=== PATIENT | female | born 1950 | race African-American/Black ===

== ENCOUNTER → 2017-04-15 | Outpatient (CLI) | payer MEDICARE, MEDICAID ==
[~2017-04-15] MED LIST: CARI350T PO; GABA-531 PO; HYDR-3282 PO; HYDR-3511 PO; LISI40TA4 PO; OXYC80TA40 PO; [UNRECOGNIZED DRUG - OTHER] PO; [UNRECOGNIZED DRUG - OTHER] PO
== END | disposition home or self-care (01) ==
LOC: US 06:16
PROVIDERS: ATTEND Internal Medicine Gastroenterology
DX: R10.13 Epigastric pain (principal); Z90.49 Acquired absence of other specified parts of digestive tract
CPT/HCPCS: 76700

== ENCOUNTER → 2017-10-17 | Outpatient (CLI) | payer MEDICARE, MEDICAID | END | disposition home or self-care (01) | LOC: MRI 09:40 | PROVIDERS: ATTEND Neurological Surgery | DX: M48.061 Spinal stenosis, lumbar region without neurogenic claudication (principal); M47.897 Other spondylosis, lumbosacral region; M47.896 Other spondylosis, lumbar region; Z98.1 Arthrodesis status | CPT/HCPCS: 72100; 72148 ==

== ENCOUNTER → 2018-01-02 | Outpatient (CLI) | payer MEDICARE, MEDICAID | END | disposition home or self-care (01) | LOC: US 07:27 | PROVIDERS: ATTEND Internal Medicine Gastroenterology | DX: R10.9 Unspecified abdominal pain (principal); Z90.49 Acquired absence of other specified parts of digestive tract; K21.9 Gastro-esophageal reflux disease without esophagitis | CPT/HCPCS: 76700 ==

== ENCOUNTER → 2018-05-30 | Outpatient (CLI) | payer MEDICARE, MEDICAID ==
[~2018-05-30] MED LIST changes: -CARI350T PO; +S350 PO
== END | disposition home or self-care (01) ==
LOC: RAD 11:20
PROVIDERS: ATTEND Family Medicine
DX: M17.12 Unilateral primary osteoarthritis, left knee (principal)
CPT/HCPCS: 73560

== ENCOUNTER → 2018-08-18 | Outpatient (CLI) | payer MEDICARE, MEDICAID | END | disposition home or self-care (01) | LOC: RAD 11:25 | PROVIDERS: ATTEND Neurological Surgery | DX: M48.07 Spinal stenosis, lumbosacral region (principal) | CPT/HCPCS: 72114 ==

== ENCOUNTER → 2018-11-20 | Outpatient (CLI) | payer MEDICARE, MEDICAID | END | disposition home or self-care (01) | LOC: US 14:49 | PROVIDERS: ATTEND Internal Medicine Gastroenterology | DX: K74.60 Unspecified cirrhosis of liver (principal); Z90.49 Acquired absence of other specified parts of digestive tract | CPT/HCPCS: 76700 ==

== ENCOUNTER → 2019-03-13 | Outpatient (CLI) | payer MEDICARE, MEDICAID ==
[~2019-03-13] MED LIST changes: -HYDR-3511 PO; +HYDR-3512 PO
== END | disposition home or self-care (01) ==
LOC: RAD 08:21
PROVIDERS: ATTEND Neurological Surgery
DX: M48.07 Spinal stenosis, lumbosacral region (principal); M51.36 Other intervertebral disc degeneration, lumbar region; M25.551 Pain in right hip; M25.552 Pain in left hip
CPT/HCPCS: 72148; 73521

== ENCOUNTER → 2019-05-21 | Outpatient (CLI) | payer MEDICARE, MEDICAID ==
[~2019-05-21] MED LIST changes: +AMLO5TAB88 PO; +ASPI-1393 PO; +CARI-166 PO; +CICL6.6S5 TP; +HYDR25TA PO; +MIRT15TA6 PO; +OMEP40CA34 PO; -S350 PO; +TRAM50TA3 PO
== END | disposition home or self-care (01) ==
LOC: US 08:13
PROVIDERS: ATTEND Internal Medicine Gastroenterology
DX: K74.60 Unspecified cirrhosis of liver (principal); K21.9 Gastro-esophageal reflux disease without esophagitis; R18.8 Other ascites; Z90.49 Acquired absence of other specified parts of digestive tract
CPT/HCPCS: 76700

== ENCOUNTER 2019-06-02 09:39 | Day surgery (SDC) | payer MEDICARE, MEDICAID ==
[~2019-06-02] VITALS: Ht 162.6 cm; Wt 64.9 kg
[~2019-06-02 09:39] MED LIST changes: -AMLO5TAB88 PO; -ASPI-1393 PO; -CICL6.6S5 TP; -HYDR25TA PO; -MIRT15TA6 PO; -OMEP40CA34 PO; -TRAM50TA3 PO
[2019-06-02] MEDS ORDERED: LACTATED RINGERS 1,000 ML IV SCH (11:15)
[2019-06-02] MEDS ORDERED: ONDANSETRON HCL 4MG/2ML INJ IV PRN (13:30)
[2019-06-02] MEDS ORDERED: HYDROMORPHONE HCL/PF 2MG/ML CPJ IV PRN (13:30)
[2019-06-02] MEDS ORDERED: LABETALOL 5MG/ML SYR 20 MG/4 ML SYRINGE IV PRN (13:30)
[2019-06-02] MEDS ORDERED: MEPERIDINE HCL/PF 25MG/ML CPJ IV PRN (13:30)
[2019-06-02] MEDS ORDERED: PROPOFOL 200MG/20ML VIAL IV ONE ×2 (13:30→13:32)
[2019-06-02] MEDS ORDERED: MIRT15TA6 PO (13:40)
[2019-06-02] MEDS ORDERED: AMLO5TAB88 PO (13:40)
[2019-06-02] MEDS ORDERED: TRAM50TA3 PO (13:40)
[2019-06-02] MEDS ORDERED: CICL6.6S5 TP (13:40)
[2019-06-02] MEDS ORDERED: ASPI-1393 PO (13:40)
[2019-06-02] MEDS ORDERED: OMEP40CA34 PO (13:40)
[2019-06-02] MEDS ORDERED: HYDR25TA PO (13:40)
[2019-06-02] MEDS ORDERED: EPHEDRINE SULFATE 50MG/ML VIAL ONE (14:49)
[2019-06-02] MEDS ORDERED: SODIUM CHLORIDE 0.9% 10ML VIAL ONE (14:49)
== END 2019-06-02 15:10 | disposition home or self-care (01) ==
LOC: OR 09:39
PROVIDERS: ATTEND Internal Medicine Gastroenterology
DX: Z12.11 Encounter for screening for malignant neoplasm of colon (principal); G43.909 Migraine, unspecified, not intractable, without status migrainosus; K21.9 Gastro-esophageal reflux disease without esophagitis; I10 Essential (primary) hypertension; K74.60 Unspecified cirrhosis of liver; Z88.5 Allergy status to narcotic agent; Z79.899 Other long term (current) drug therapy; Z98.890 Other specified postprocedural states; Z79.82 Long term (current) use of aspirin
CPT/HCPCS: G0121; J2704; J3490

== ENCOUNTER → 2020-09-21 | Outpatient (CLI) | payer MEDICARE, MEDICAID ==
[~2020-09-21] MED LIST changes: +AMLO5TAB88 PO; +ASPI-1497 PO; -CARI-166 PO; +CICL6.6S5 TP; -GABA-531 PO; -HYDR-3282 PO; -HYDR-3512 PO; +HYDR25TA PO; -LISI40TA4 PO; +MIRT15TA6 PO; +OMEP40CA12 PO; -OXYC80TA40 PO; +TRAM50TA3 PO; -[UNRECOGNIZED DRUG - OTHER] PO; -[UNRECOGNIZED DRUG - OTHER] PO
== END | disposition home or self-care (01) ==
LOC: MRI 09:58
PROVIDERS: ATTEND Neurological Surgery
DX: M47.817 Spondylosis without myelopathy or radiculopathy, lumbosacral region (principal); M43.16 Spondylolisthesis, lumbar region; M51.36 Other intervertebral disc degeneration, lumbar region; M48.061 Spinal stenosis, lumbar region without neurogenic claudication
CPT/HCPCS: 72114; 72148

== ENCOUNTER → 2020-10-05 | Outpatient (CLI) | payer MEDICARE, MEDICAID | END | disposition home or self-care (01) | LOC: MRI 09:38 | PROVIDERS: ATTEND Neurological Surgery | DX: M47.814 Spondylosis without myelopathy or radiculopathy, thoracic region (principal); M48.04 Spinal stenosis, thoracic region; M51.24 Other intervertebral disc displacement, thoracic region; M47.812 Spondylosis without myelopathy or radiculopathy, cervical region; M48.02 Spinal stenosis, cervical region | CPT/HCPCS: 72141; 72146 ==

== ENCOUNTER → 2021-04-11 | Outpatient (CLI) | payer MEDICARE, MEDICAID | END | disposition home or self-care (01) | LOC: CARD 12:16 | PROVIDERS: ATTEND Family Medicine | DX: Z01.810 Encounter for preprocedural cardiovascular examination (principal); J44.9 Chronic obstructive pulmonary disease, unspecified; I25.2 Old myocardial infarction; M43.27 Fusion of spine, lumbosacral region | CPT/HCPCS: 71046; 93005 ==

== ENCOUNTER 2021-07-01 06:56 | Inpatient (IN) | payer MEDICARE, MEDICAID ==
[~2021-07-01] VITALS: Ht 162.6 cm; Wt 73.5 kg
[~2021-07-01 06:56] MED LIST changes: +MIRT-89 PO; -MIRT15TA6 PO; -OMEP40CA12 PO; +OMEP40CA20 PO
[2021-07-01] MEDS ORDERED: TRAMADOL 50MG TABLET PO ONE ×2 (09:30→11:45)
[2021-07-01 09:31] LABS: BASOPHILS % 0.9 % (0.0-2.0); EOSINOPHILS % 1.3 % (0.0-5.0); HEMATOCRIT. 40.1 % (36.0-48.0); HEMOGLOBIN. 13.5 g/dL (12.0-16.0); LYMPHOCYTES % 34.3 % (20.0-50.0); MEAN CORPUSCULAR HEMOGLOBIN 30.5 pg (28.0-32.0); MEAN CORPUSCULAR VOLUME 90.7 fL (81.0-99.0); MEAN PLATELET VOLUME 8.3 fl (7.4-10.4); MONOCYTES % 9.9 % (2.0-8.0); NEUTROPHILS % 53.6 % (40.0-76.0); PLATELET 185 x1000/uL (130-400); RED BLOOD CELL COUNT 4.42 mill/uL (4.2-5.4); RED CELL DISTRIBUTION WIDTH 14.8 % (11.6-14.6)
[2021-07-01 09:40] LABS: CHLORIDE 111 mEq/L (98-107)
[2021-07-01] MEDS ORDERED: LIDOCAINE 5% PATCH TOP SCH (11:30)
[2021-07-01] MEDS ORDERED: CLONIDINE 0.1MG TABLET PO PRN (12:30)
[2021-07-01] MEDS ORDERED: ONDANSETRON HCL 4MG/2ML INJ IV PRN (12:30)
[2021-07-01] MEDS ORDERED: DOCUSATE SODIUM 100MG CAPSULE PO PRN (12:30)
[2021-07-01] MEDS ORDERED: ACETAMINOPHEN 325MG TABLET PO PRN (12:30)
[2021-07-01] MEDS ORDERED: FENTANYL CITRATE/PF 50MCG/ML 2ML VIAL IV PRN (12:30)
[2021-07-01] MEDS ORDERED: MELOXICAM 7.5MG TABLET PO SCH (13:45)
[2021-07-01] MEDS ORDERED: TIZANIDINE HCL 2MG TABLET PO ONE (13:45)
[2021-07-01] MEDS: SODIUM CHLORIDE 0.45% 1,000 ML IV SCH ×2 (20:00→21:26)
[2021-07-01 20:20] VITALS: BP 133/79
[2021-07-01 20:30] VITALS: BP 121/62
[2021-07-01] MEDS ORDERED: NALOXONE HCL 0.4MG/ML VIAL IV PRN (20:45)
[2021-07-01] MEDS: TRAMADOL HCL/ACETAMINOPHEN 37.5/325MG TABLET PO PRN (23:04)
[2021-07-02] VITALS: BP 129/72
[2021-07-02] MEDS ORDERED: TIZANIDINE HCL 2MG TABLET PO PRN (01:00)
[2021-07-02 04:00] VITALS: BP 126/73
[2021-07-02] MEDS: GABAPENTIN 300MG CAPSULE PO SCH ×3 (05:27→21:45)
[2021-07-02 08:08] VITALS: BP 122/56
[2021-07-02] MEDS: MELOXICAM 7.5MG TABLET PO SCH (08:43)
[2021-07-02] MEDS ORDERED: AMLODIPINE 5MG TABLET PO SCH (09:00)
[2021-07-02 10:42] LABS: HEMATOCRIT. 34.7 % (36.0-48.0); HEMOGLOBIN. 11.7 g/dL (12.0-16.0); MEAN CORPUSCULAR HEMOGLOBIN 30.2 pg (28.0-32.0); MEAN CORPUSCULAR VOLUME 89.4 fL (81.0-99.0); MEAN PLATELET VOLUME 8.9 fl (7.4-10.4); PLATELET 164 x1000/uL (130-400); RED BLOOD CELL COUNT 3.88 mill/uL (4.2-5.4); RED CELL DISTRIBUTION WIDTH 14.9 % (11.6-14.6)
[2021-07-02 10:45] LABS: CHLORIDE 108 mEq/L (98-107)
[2021-07-02 10:53] LABS: LDL CHOLESTEROL 90 mg/dL (5-100)
[2021-07-02 10:55] LABS: HDL CHOLESTEROL 49 mg/dL (40-59)
[2021-07-02] MEDS: CARISOPRODOL 350 MG TABLET PO SCH ×3 (11:46→22:05)
[2021-07-02 11:53] VITALS: BP 118/61
[2021-07-02 12:15] LABS: PLATELET ESTIMATE NORMAL
[2021-07-02 16:15] VITALS: BP 124/60
[2021-07-02 20:00] VITALS: BP 123/64
[2021-07-02] MEDS: MIRTAZAPINE 15MG TABLET PO SCH (21:45)
[2021-07-02] MEDS: LIDOCAINE 5% PATCH TOP SCH (23:53)
[2021-07-03] VITALS: BP 120/58
[2021-07-03 04:00] VITALS: BP 116/68
[2021-07-03] MEDS: GABAPENTIN 300MG CAPSULE PO SCH ×3 (05:59→22:03)
[2021-07-03] MEDS: CARISOPRODOL 350 MG TABLET PO SCH ×3 (06:00→22:03)
[2021-07-03 08:00] VITALS: BP 104/50
[2021-07-03 09:29] LABS: HEMATOCRIT. 34.8 % (36.0-48.0); HEMOGLOBIN. 11.8 g/dL (12.0-16.0); MEAN CORPUSCULAR HEMOGLOBIN 30.3 pg (28.0-32.0); MEAN CORPUSCULAR VOLUME 89.4 fL (81.0-99.0); MEAN PLATELET VOLUME 8.9 fl (7.4-10.4); PLATELET 174 x1000/uL (130-400); RED BLOOD CELL COUNT 3.89 mill/uL (4.2-5.4); RED CELL DISTRIBUTION WIDTH 14.8 % (11.6-14.6)
[2021-07-03] MEDS: MELOXICAM 7.5MG TABLET PO SCH (09:35)
[2021-07-03] MEDS: TRAMADOL HCL/ACETAMINOPHEN 37.5/325MG TABLET PO PRN (09:36)
[2021-07-03 09:52] LABS: CHLORIDE 110 mEq/L (98-107)
[2021-07-03 12:00] VITALS: BP 114/68
[2021-07-03 13:55] LABS: PLATELET ESTIMATE NORMAL
[2021-07-03 16:00] VITALS: BP 120/67
[2021-07-03] MEDS: LACTULOSE 20G/30ML UDC PO SCH ×2 (18:44→20:38)
[2021-07-03] MEDS: DOCUSATE SODIUM 100MG CAPSULE PO SCH (18:44)
[2021-07-03] MEDS: TRAMADOL 50MG TABLET PO PRN (18:47)
[2021-07-03 20:00] VITALS: BP 145/67
[2021-07-03] MEDS: POLYETHYLENE GLYCOL 3350 (17GM) 1 DOSE PACK PO SCH (20:38)
[2021-07-03] MEDS: MIRTAZAPINE 15MG TABLET PO SCH (20:39)
[2021-07-03] MEDS: LIDOCAINE 5% PATCH TOP SCH (22:05)
[2021-07-04] VITALS (7 sets, daily range): BP systolic 106–133; BP diastolic 60–71
[2021-07-04] MEDS: GABAPENTIN 300MG CAPSULE PO SCH ×3 (05:27→21:59)
[2021-07-04] MEDS: CARISOPRODOL 350 MG TABLET PO SCH ×3 (05:27→21:59)
[2021-07-04] MEDS: TRAMADOL 50MG TABLET PO PRN ×3 (05:42→22:12)
[2021-07-04] MEDS: LACTULOSE 20G/30ML UDC PO SCH (09:03)
[2021-07-04] MEDS: DOCUSATE SODIUM 100MG CAPSULE PO SCH ×2 (09:03→17:00)
[2021-07-04] MEDS: MELOXICAM 7.5MG TABLET PO SCH (09:03)
[2021-07-04] MEDS: POLYETHYLENE GLYCOL 3350 (17GM) 1 DOSE PACK PO SCH (21:00)
[2021-07-04] MEDS: MIRTAZAPINE 15MG TABLET PO SCH (21:59)
[2021-07-04] MEDS: LIDOCAINE 5% PATCH TOP SCH ×2 (22:00→22:13)
[2021-07-05] VITALS (8 sets, daily range): BP systolic 118–136; BP diastolic 56–82
[2021-07-05] MEDS: CARISOPRODOL 350 MG TABLET PO SCH ×3 (07:11→19:02)
[2021-07-05] MEDS: GABAPENTIN 300MG CAPSULE PO SCH ×3 (07:11→22:27)
[2021-07-05] MEDS: MELOXICAM 7.5MG TABLET PO SCH (10:33)
[2021-07-05] MEDS: DOCUSATE SODIUM 100MG CAPSULE PO SCH ×2 (10:33→17:00)
[2021-07-05] MEDS ORDERED: AMLODIPINE 5MG TABLET PO SCH (12:08)
[2021-07-05] MEDS: TRAMADOL 50MG TABLET PO PRN ×2 (14:40→22:31)
[2021-07-05] MEDS: POLYETHYLENE GLYCOL 3350 (17GM) 1 DOSE PACK PO SCH (21:00)
[2021-07-05] MEDS: MIRTAZAPINE 15MG TABLET PO SCH (21:00)
[2021-07-05] MEDS ORDERED: LIDOCAINE 5% PATCH TOP SCH (22:30)
== END 2021-07-05 22:55 | DRG 551 ==
LOC: ER 07:11 → 6EST 12:23 → ENRESERV 19:32 → 6EST 20:51
PROVIDERS: ADMIT Internal Medicine Nephrology; ATTEND Internal Medicine Nephrology
DX: M54.50 Low back pain, unspecified (principal); G82.50 Quadriplegia, unspecified; R26.89 Other abnormalities of gait and mobility; D72.819 Decreased white blood cell count, unspecified; I10 Essential (primary) hypertension; D64.9 Anemia, unspecified; R20.0 Anesthesia of skin; R53.81 Other malaise; K74.60 Unspecified cirrhosis of liver; M48.02 Spinal stenosis, cervical region; G89.4 Chronic pain syndrome; Y92.410 Unspecified street and highway as the place of occurrence of the external cause; Z82.49 Family history of ischemic heart disease and other diseases of the circulatory system; Z83.3 Family history of diabetes mellitus; Z85.05 Personal history of malignant neoplasm of liver; Z91.81 History of falling; Z98.1 Arthrodesis status; Z79.899 Other long term (current) drug therapy; V43.52XA Car driver injured in collision with other type car in traffic accident, initial encounter; Y93.89 Activity, other specified; Y99.8 Other external cause status; Z88.6 Allergy status to analgesic agent; Z79.82 Long term (current) use of aspirin; Z90.49 Acquired absence of other specified parts of digestive tract
CPT/HCPCS: 36415; 71045; 72131; 72141; 72146; 72148; 80048; 80053; 80061; 84484; 85025; 92523; 93005; 93970; 97116; 97162; 97166; 97530; 99285; A6261; J3010

== ENCOUNTER 2021-07-05 22:58 | Inpatient (IN) | payer MEDICARE, MEDICAID ==
[~2021-07-05] VITALS: Ht 162.6 cm; Wt 73.5 kg
[2021-07-05 22:58] VITALS: BP 138/61
[2021-07-06] MEDS ORDERED: ACETAMINOPHEN 325MG TABLET PO PRN (00:45)
[2021-07-06] MEDS ORDERED: DOCUSATE SODIUM 250MG CAPSULE PO PRN (00:45)
[2021-07-06] MEDS ORDERED: ONDANSETRON HCL 4MG/2ML INJ IV PRN (00:45)
[2021-07-06] MEDS ORDERED: CLONIDINE 0.1MG TABLET PO PRN (00:45)
[2021-07-06] MEDS ORDERED: NALOXONE HCL 0.4 MG/ML 1ML VIAL IV PRN (00:45)
[2021-07-06] MEDS ORDERED: DOCUSATE SODIUM 100MG CAPSULE PO PRN (01:02)
[2021-07-06] MEDS: CARISOPRODOL 350 MG TABLET PO SCH ×4 (01:34→17:52)
[2021-07-06] MEDS: GABAPENTIN 300MG CAPSULE PO SCH ×3 (05:37→21:37)
[2021-07-06 07:31] LABS: CHLORIDE 108 mEq/L (98-107)
[2021-07-06 07:33] LABS: HEMATOCRIT. 33.1 % (36.0-48.0); MEAN CORPUSCULAR HEMOGLOBIN 30.4 pg (28.0-32.0); MEAN CORPUSCULAR VOLUME 91.2 fL (81.0-99.0); MEAN PLATELET VOLUME 9.2 fl (7.4-10.4); PLATELET 140 x1000/uL (130-400); RED BLOOD CELL COUNT 3.63 mill/uL (4.2-5.4); RED CELL DISTRIBUTION WIDTH 14.9 % (11.6-14.6)
[2021-07-06 08:00] VITALS: BP 109/59
[2021-07-06] MEDS: AMLODIPINE 5MG TABLET PO SCH (08:18)
[2021-07-06] MEDS: DOCUSATE SODIUM 100MG CAPSULE PO SCH ×3 (09:00→17:00)
[2021-07-06] MEDS ORDERED: FILGRASTIM 300 MCG/ML VIAL SUBCUT SCH (09:30)
[2021-07-06] MEDS: MELOXICAM 7.5MG TABLET PO SCH (10:14)
[2021-07-06] MEDS: LIDOCAINE 5% PATCH TOP SCH (10:15)
[2021-07-06] MEDS: TRAMADOL 50MG TABLET PO PRN ×2 (13:36→21:38)
[2021-07-06 14:30] LABS: PLATELET ESTIMATE NORMAL
[2021-07-06 20:00] VITALS: BP 98/53
[2021-07-06] MEDS: POLYETHYLENE GLYCOL 3350 (17GM) 1 DOSE PACK PO SCH (21:00)
[2021-07-06] MEDS: MIRTAZAPINE 15MG TABLET PO SCH (21:37)
[2021-07-06] MEDS: FILGRASTIM-TBO 300 MCG/0.5 ML SYRINGE SQ SCH (21:38)
[2021-07-07] MEDS: CARISOPRODOL 350 MG TABLET PO SCH ×5 (00:12→23:22)
[2021-07-07] MEDS: GABAPENTIN 300MG CAPSULE PO SCH ×3 (05:46→21:12)
[2021-07-07] MEDS: TRAMADOL 50MG TABLET PO PRN ×2 (06:58→16:06)
[2021-07-07 07:54] VITALS: BP 130/78
[2021-07-07] MEDS: AMLODIPINE 5MG TABLET PO SCH (10:30)
[2021-07-07] MEDS: TRAMADOL 50MG TABLET PO SCH ×2 (10:30→17:57)
[2021-07-07] MEDS: LIDOCAINE 5% PATCH TOP SCH (10:32)
[2021-07-07] MEDS: DOCUSATE SODIUM 100MG CAPSULE PO SCH ×2 (10:34→17:00)
[2021-07-07] MEDS: MELOXICAM 7.5MG TABLET PO SCH (10:34)
[2021-07-07 17:00] LABS: HEMATOCRIT. 32.8 % (36.0-48.0); HEMOGLOBIN. 10.7 g/dL (12.0-16.0); MEAN CORPUSCULAR HEMOGLOBIN 30.2 pg (28.0-32.0); MEAN CORPUSCULAR VOLUME 92.3 fL (81.0-99.0); MEAN PLATELET VOLUME 9.6 fl (7.4-10.4); PLATELET 136 x1000/uL (130-400); RED BLOOD CELL COUNT 3.56 mill/uL (4.2-5.4); RED CELL DISTRIBUTION WIDTH 14.8 % (11.6-14.6)
[2021-07-07 17:04] LABS: CHLORIDE 106 mEq/L (98-107)
[2021-07-07 17:14] LABS: TOTAL IRON BINDING CAPACITY 268 ug/dL (250-450)
[2021-07-07 17:38] LABS: FOLIC ACID (FOLATE) SERUM 4.7 ng/mL (>5.38)
[2021-07-07 20:00] VITALS: BP 112/51
[2021-07-07] MEDS: MIRTAZAPINE 15MG TABLET PO SCH (20:16)
[2021-07-07] MEDS: TIZANIDINE HCL 2MG TABLET PO PRN (20:16)
[2021-07-07] MEDS: FILGRASTIM-TBO 300 MCG/0.5 ML SYRINGE SQ SCH (20:16)
[2021-07-07] MEDS: POLYETHYLENE GLYCOL 3350 (17GM) 1 DOSE PACK PO SCH (20:17)
[2021-07-07 23:22] LABS: PLATELET ESTIMATE NORMAL
[2021-07-08] MEDS: TRAMADOL 50MG TABLET PO PRN ×2 (03:54→13:56)
[2021-07-08] MEDS: CARISOPRODOL 350 MG TABLET PO SCH ×4 (05:31→23:16)
[2021-07-08] MEDS: GABAPENTIN 300MG CAPSULE PO SCH ×3 (05:31→21:06)
[2021-07-08 08:00] VITALS: BP 116/60
[2021-07-08] MEDS: FOLIC ACID 1MG TABLET PO SCH (08:22)
[2021-07-08] MEDS: TRAMADOL 50MG TABLET PO SCH ×2 (08:23→17:19)
[2021-07-08] MEDS: AMLODIPINE 5MG TABLET PO SCH (08:23)
[2021-07-08] MEDS: MELOXICAM 7.5MG TABLET PO SCH (08:23)
[2021-07-08] MEDS: LIDOCAINE 5% PATCH TOP SCH (08:24)
[2021-07-08] MEDS: DOCUSATE SODIUM 100MG CAPSULE PO SCH ×2 (08:24→17:00)
[2021-07-08 10:01] LABS: HEMOGLOBIN. 11.7 g/dL (12.0-16.0); MEAN CORPUSCULAR HEMOGLOBIN 29.6 pg (28.0-32.0); MEAN CORPUSCULAR VOLUME 91.1 fL (81.0-99.0); MEAN PLATELET VOLUME 9.3 fl (7.4-10.4); PLATELET 147 x1000/uL (130-400); RED BLOOD CELL COUNT 3.96 mill/uL (4.2-5.4); RED CELL DISTRIBUTION WIDTH 15.1 % (11.6-14.6)
[2021-07-08 10:04] LABS: CHLORIDE 105 mEq/L (98-107)
[2021-07-08 10:49] LABS: PLATELET ESTIMATE NORMAL
[2021-07-08 20:00] VITALS: BP 104/61
[2021-07-08] MEDS: POLYETHYLENE GLYCOL 3350 (17GM) 1 DOSE PACK PO SCH (21:00)
[2021-07-08] MEDS: MIRTAZAPINE 15MG TABLET PO SCH ×2 (21:00→21:06)
[2021-07-09] MEDS: GABAPENTIN 300MG CAPSULE PO SCH ×3 (05:27→21:58)
[2021-07-09] MEDS: CARISOPRODOL 350 MG TABLET PO SCH (05:27)
[2021-07-09 07:22] LABS: CHLORIDE 107 mEq/L (98-107)
[2021-07-09 08:00] VITALS: BP 134/78
[2021-07-09] MEDS: TRAMADOL 50MG TABLET PO SCH ×2 (09:00→17:35)
[2021-07-09] MEDS: DOCUSATE SODIUM 100MG CAPSULE PO SCH (09:00)
[2021-07-09] MEDS: FOLIC ACID 1MG TABLET PO SCH (09:50)
[2021-07-09] MEDS: MELOXICAM 7.5MG TABLET PO SCH (09:51)
[2021-07-09] MEDS: AMLODIPINE 5MG TABLET PO SCH (09:51)
[2021-07-09] MEDS: TIZANIDINE HCL 2MG TABLET PO PRN ×2 (09:52→22:10)
[2021-07-09] MEDS: LIDOCAINE 5% PATCH TOP SCH (10:06)
[2021-07-09 10:16] LABS: BASOPHILS % 0.3 % (0.0-2.0); EOSINOPHILS % 0.8 % (0.0-5.0); HEMATOCRIT. 32.9 % (36.0-48.0); HEMOGLOBIN. 10.9 g/dL (12.0-16.0); MEAN CORPUSCULAR VOLUME 90.9 fL (81.0-99.0); MEAN PLATELET VOLUME 9.6 fl (7.4-10.4); MONOCYTES % 5.5 % (2.0-8.0); NEUTROPHILS % 85.4 % (40.0-76.0); PLATELET 139 x1000/uL (130-400); RED BLOOD CELL COUNT 3.62 mill/uL (4.2-5.4); RED CELL DISTRIBUTION WIDTH 15.2 % (11.6-14.6)
[2021-07-09] MEDS ORDERED: SODIUM POLYSTYRENE SULFONATE 15 G/60 ML BOT PO NR (13:00)
[2021-07-09 20:00] VITALS: BP 131/57
[2021-07-09] MEDS: MIRTAZAPINE 15MG TABLET PO SCH (21:56)
[2021-07-10 06:59] LABS: CHLORIDE 109 mEq/L (98-107)
[2021-07-10] MEDS: GABAPENTIN 300MG CAPSULE PO SCH (07:14)
[2021-07-14 17:11] LABS: 25-HYDROXY VITAMIN D3 23 ng/mL (.)
== END 2021-07-10 07:55 | disposition left against medical advice (07) | DRG 551 ==
LOC: UNDOADMIN 23:50
PROVIDERS: ADMIT Physical Medicine & Rehabilitation Spinal Cord Injury Medicine; ATTEND Internal Medicine Nephrology
DX: M48.02 Spinal stenosis, cervical region (principal); G82.50 Quadriplegia, unspecified; G95.89 Other specified diseases of spinal cord; M51.16 Intervertebral disc disorders with radiculopathy, lumbar region; T45.8X5A Adverse effect of other primarily systemic and hematological agents, initial encounter; D64.9 Anemia, unspecified; D72.819 Decreased white blood cell count, unspecified; E53.8 Deficiency of other specified B group vitamins; E87.5 Hyperkalemia; G89.4 Chronic pain syndrome; I10 Essential (primary) hypertension; K74.60 Unspecified cirrhosis of liver; M48.061 Spinal stenosis, lumbar region without neurogenic claudication; M48.07 Spinal stenosis, lumbosacral region; R53.81 Other malaise; R26.89 Other abnormalities of gait and mobility; M96.1 Postlaminectomy syndrome, not elsewhere classified; M43.16 Spondylolisthesis, lumbar region; Y83.8 Other surgical procedures as the cause of abnormal reaction of the patient, or of later complication, without mention of misadventure at the time of the procedure; Z79.899 Other long term (current) drug therapy; Z82.49 Family history of ischemic heart disease and other diseases of the circulatory system; Z98.1 Arthrodesis status; Z98.49 Cataract extraction status, unspecified eye; Z79.82 Long term (current) use of aspirin; Y92.89 Other specified places as the place of occurrence of the external cause
CPT/HCPCS: 36415; 80048; 80053; 82306; 82607; 82728; 82746; 83540; 83550; 84134; 84443; 85025; 92523; 93970; 97110; 97116; 97162; 97166; 97530; 97535; A6261; J1442

== ENCOUNTER → 2024-06-30 | Outpatient (CLI) | payer MEDICARE, MEDICAID ==
[~2024-06-30] MED LIST changes: +CICL6.6S22 TP; -CICL6.6S5 TP
== END | disposition home or self-care (01) ==
LOC: US 09:03
PROVIDERS: ATTEND Internal Medicine Gastroenterology
DX: K74.60 Unspecified cirrhosis of liver (principal); Z90.49 Acquired absence of other specified parts of digestive tract
CPT/HCPCS: 76700